=== PATIENT | female | born 1955 | race Caucasian/White ===

== ENCOUNTER 2023-11-23 16:00 | Outpatient (CLI) | payer BC | END 2023-11-23 16:01 | disposition home or self-care (01) | LOC: CSHSLEEP 16:00 | PROVIDERS: ATTEND Family Medicine | DX: R53.83 Other fatigue (principal); F32.A Depression, unspecified; G47.00 Insomnia, unspecified | CPT/HCPCS: 95800 ==

== ENCOUNTER 2023-12-23 08:13 | Outpatient (CLI) | payer BC | END 2023-12-23 08:14 | disposition home or self-care (01) | LOC: CSHSLEEP 08:13 | PROVIDERS: ATTEND Family Medicine | DX: R53.83 Other fatigue (principal); F32.A Depression, unspecified; G47.00 Insomnia, unspecified; G47.33 Obstructive sleep apnea (adult) (pediatric); R09.02 Hypoxemia | CPT/HCPCS: 95810 ==